=== PATIENT | female | born 1960 | race African-American/Black ===

== ENCOUNTER 2016-11-11 06:53 | Day surgery (SDC) | payer OTHER ==
[~2016-11-11] VITALS: Ht 157.5 cm; Wt 147.0 kg
[~2016-11-11 06:53] MED LIST: ALBU8.5H IH; AMIT25TA9 PO; AMIT50TA3 PO; ARIP10TA14 PO; BENZ-26 PO; COLC0.6T69 PO; CYCL10B; DILT90SR PO; FOLI1 PO; FURO40 PO; HYDR-3965 PO; KDUR10 PO; MOME13HF IH; MONT10TA21 PO; OMEP40CA12 PO; PROM25 PO; ZOLP10 PO
[2016-11-11] MEDS ORDERED: SODIUM CHLORIDE 0.9% 1,000 ML IV ONE ×2 (06:56→07:00)
[2016-11-11] MEDS ORDERED: ARIP15TA3 PO (07:19)
[2016-11-11] MEDS ORDERED: ASPI81 PO (07:25)
[2016-11-11] MEDS ORDERED: ALBU8.5H IH (07:25)
[2016-11-11] MEDS ORDERED: CYCL10 PO (07:25)
[2016-11-11] MEDS ORDERED: DILT-35 PO (07:25)
[2016-11-11] MEDS ORDERED: ATOR20TA86 PO (07:25)
[2016-11-11] MEDS ORDERED: FURO40 PO (07:25)
[2016-11-11] MEDS ORDERED: ALLO300 PO (07:25)
[2016-11-11] MEDS ORDERED: BENZ-26 PO (07:25)
[2016-11-11] MEDS ORDERED: FLUT16H NASAL (07:25)
[2016-11-11] MEDS ORDERED: OMEP20 PO (07:25)
[2016-11-11] MEDS ORDERED: PROM25 PO (07:25)
[2016-11-11] MEDS ORDERED: D-ME118S13 PO (07:25)
[2016-11-11] MEDS ORDERED: LISI-661 PO (07:25)
[2016-11-11 07:32] LABS: GLUCOSE,POINT OF CARE 95 MG/DL (70-110)
[2016-11-11] MEDS ORDERED: MIDAZOLAM HCL 2 MG/2 ML VIAL ONE (07:49)
[2016-11-11] MEDS ORDERED: FentaNYL CITRATE-PF 100 MCG/2 ML VIAL ONE (07:49)
[2016-11-11] MEDS ORDERED: MethylPREDNISolone SOD SUCC 125 MG/2 ML VIAL IVP ONE (08:45)
[2016-11-11] MEDS ORDERED: MethylPREDNISolone SOD SUCC 125 MG/2 ML VIAL ONE (09:15)
[2016-11-11] MEDS ORDERED: BENZOCAINE 20% 50 MCG/SPRAY 57 GM TP ONE (14:17)
[2016-11-11] MEDS ORDERED: LIDOCAINE HCL 2% 30 ML JELLY TP ONE (14:17)
[2016-11-11] MEDS ORDERED: ALBUTEROL SULFATE 2.5 MG/0.5 ML NEB SOLUTION NEB ONE (14:17)
[2016-11-11] MEDS ORDERED: LIDOCAINE HCL 4% 50 ML SOLUTION TP ONE (14:17)
[2016-11-11] MEDS ORDERED: OXYGEN THERAPY IH SCH (20:00)
== END 2016-11-11 10:50 | disposition home or self-care (01) ==
LOC: SURGERY 06:53
PROVIDERS: ATTEND Internal Medicine Critical Care Medicine
DX: J38.4 Edema of larynx (principal); B37.0 Candidal stomatitis; J44.9 Chronic obstructive pulmonary disease, unspecified; E11.9 Type 2 diabetes mellitus without complications; F17.210 Nicotine dependence, cigarettes, uncomplicated; Z79.82 Long term (current) use of aspirin; Z98.890 Other specified postprocedural states
CPT/HCPCS: 31623; 31624; 71010; 82962; 87015 ×2; 87070; 87101; 87205; 87220; 88108; 88312; J2250; J2930; J3010; J7030

== ENCOUNTER → 2019-05-10 | Day surgery (SDC) | payer OTHER ==
[~2019-05-10] VITALS: Ht 162.6 cm; Wt 128.2 kg
[~2019-05-10] MED LIST changes: -ALBU8.5H IH; +ALBU8.5H8 IH; +ALLO300 PO; -AMIT25TA9 PO; -ARIP10TA14 PO; +ARIP15TA2 PO; +ASPI-728 PO; +ATOR20TA86 PO; -BENZ-26 PO; +BENZ-51 PO; -COLC0.6T69 PO; +COLC0.6T73 PO; +CYCL10 PO; -CYCL10B; +DILT-40 PO; -DILT90SR PO; +FLUT16H NASAL; -HYDR-3965 PO; +HYDR-4061 PO; +LIDOCAINE/PF 2% 5 ML SYRINGE IVP ONE; +LISI-661 PO; +OMEP20 PO; -OMEP40CA12 PO; +PROM118S4 PO; +PROPOFOL 1% 20 ML VIAL IVP ONE; +SODIUM CHLORIDE 0.9% 1,000 ML IV ONE; +SODIUM CHLORIDE 0.9% 1,000 ML ONE; -ZOLP10 PO; +ZOLP10TA7 PO
== END | disposition home or self-care (01) ==
LOC: SURGERY 13:08
PROVIDERS: ATTEND Student in an Organized Health Care Education/Training Program
DX: R63.0 Anorexia (principal); R63.4 Abnormal weight loss; K29.50 Unspecified chronic gastritis without bleeding; B37.81 Candidal esophagitis; K22.8 Other specified diseases of esophagus; K44.9 Diaphragmatic hernia without obstruction or gangrene; K31.89 Other diseases of stomach and duodenum; I10 Essential (primary) hypertension; J44.9 Chronic obstructive pulmonary disease, unspecified; K21.9 Gastro-esophageal reflux disease without esophagitis; E66.9 Obesity, unspecified; Z68.42 Body mass index [BMI] 45.0-49.9, adult
CPT/HCPCS: 43239; 88305; 88312; 88313; C1769; J2704; J3490; J7030